=== PATIENT | male | born 1945 | race Caucasian/White ===

== ENCOUNTER 2021-10-19 13:29 | Observation (INO) | payer MEDICARE ==
[~2021-10-19] VITALS: Ht 182.9 cm; Wt 85.9 kg
--- NOTE | 2021-10-19 13:41 | PHYS DOC ---
General Adult EDM: Chief Complaint: SHORTNESS OF BREATH HPI: HPI: Patient is a 76 year old male who presents from home via EMS for multiple complaints. Reports that he has progressive shortness of breath, coughing, congestion and wheezing for the past several days. He is coughing up sputum, which is new for him. He denies any hemoptysis. He denies fevers or chills. He reports progressively worsening weakness symptoms for the past several months. He reports that he has a "neuro problem." Causes him to have shaking, ambulatory instability, and he also reports that he has an essential tremor. He has had multiple falls. He is unsure if he has hit his head, but he denies loss of consciousness. He denies chest pain. He denies abdominal pain, nausea, vomiting. He has chronic lower extremity swelling, unchanged from baseline. He is unable to articulate the names of all his medications but he reports that he has multiple medications for his heart, as well as for heart failure, and for "mental health stuff." He normally goes to the [place] for his care, but he has been unable to make an appointment to be seen for these problems recently. He denies hospitalizations within the last 90 days. He denies recent travel history. He has been fully vaccinated against COVID-19. He is a former smoker. EMS noted that he was hypoxic on room air, saturating in the 80s, he was placed on supplemental nasal cannula oxygen. He does not usually require supplemental oxygen. Review of Systems: Review of Systems: As per HPI. Physical Exam: PE: Constitutional: Frail, chronically ill-appearing male, mildly to moderately acutely ill, nontoxic HENT: Normocephalic, atraumatic, evidence of facial or oral trauma. External ea rs are normal bilaterally. Nares are patent and clear. Eyes: PERRL, EOMI, conjunctiva normal, no discharge. No nystagmus. No scleral icterus. Neck: Normal range of motion, no tenderness, supple, no stridor. [employer] is midline. No meningismus. Cardiovascular: Irregularly irregular, heart rate in the 90s and low 100s, a trial fibrillation, +2 radial and +2 posterior tibial pulses bilaterally. Lungs & Thorax: Moderate tachypnea, inspiratory and expiratory wheezing, bibasilar rales and rhonchi noted. Speaks in brief but full sentences. No retractions. No cyanosis. Abdomen: Abdomen is soft, nondistended, nontender to palpation. No palpable pulsatile mass. No CVA tenderness. No evidence of abdominal or flank ecchymoses. Skin: Warm, dry, no erythema, no rash. [] Back: No tenderness, no CVA tenderness. Kyphosis, limited range of motion. No acute deformity or midline tenderness or step-offs. Extremities: No tenderness, no cyanosis, no clubbing, ROM intact, bilateral, s ymmetric 1+ pitting lower extremity edema. No calf tenderness. Neurologic: He is awake, alert, oriented x3, cranial nerves II through XII grossly intact. Bilateral infection control coordinator strength is normal and equal bilaterally. He does manifest diffuse, symmetric bilateral lower extremity weakness, no limb ataxia, baseline tremor is noted, intention tremor is more pronounced, sensation is grossly intact, speech is fluent. Psychologic: Affect relatively flat, he is pleasant. EKG: EKG: EKG is interpreted at 1357 Rhythm is atrial fibrillation with RVR Rate is 109 bpm Caret is left No STEMI Q waves V1, V2, V3 Radiology/Procedures: Radiology/Procedures: IMAGING REPORT Signed PATIENT: ANIYAH FAYE ACCOUNT: [id number] : 1945 LOCATION: ER AGE: 76 SEX: M EXAM STATUS: REG ER ORD. PHYSICIAN: SHOSHANA JIMENES DO REASON: weakness, falls PROCEDURE: CT HEAD WO CONTRAST EXAMINATION: CT HEAD/BRAIN WO. TECHNIQUE: Noncontrast axial images of the brain were obtained with coronal and sagittal reconstructions. One or more of the following radiation dose reduction techniques was used: automated exposure control, adjustment of mA and/or KV according to patient size, and/or utilization of iterative reconstruction technique. HISTORY: 76 years Male Reason: weakness, repeated falls. FINDINGS: There is no intracranial hemorrhage, edema or mass effect. The brain parenchyma demonstrates periventricular and deep white matter hypodensities compatible with chronic microvascular ischemic changes. Size of the ventricles is slightly prominent, appears secondary to mild age- related atrophy. The visualized portions of the orbits and paranasal sinuses appear unremarkable. IMPRESSION: No acute process. Electronically signed by: Rose Kent MD (10/19/2021 2:35 PM) [id number] DICTATED AND SIGNED BY: ROSE KENT MD DATE: 10/19/21 1432 CC: SHOSHANA JIMENES DO; PCP,NO ~ IMAGING REPORT Signed PATIENT: ANIYAH FAYE ACCOUNT: [id number] : 1945 LOCATION: ER AGE: 76 SEX: M EXAM STATUS: REG ER ORD. PHYSICIAN: SHOSHANA JIMENES DO REASON: cough, dyspnea PROCEDURE: PORTABLE CHEST 1V EXAMINATION: XR CHEST 1V CLINICAL HISTORY: Cough, dyspnea. EXAM DATE/TIME: 10/19/2021 2:26 PM COMPARISON: None FINDINGS: Lines, Tubes, and Devices: None. Cardiomediastinal Silhouette: Prominent cardiac silhouette, likely accentuated by AP portable technique. Aortic atherosclerotic calcification. Lungs and Pleura: Small right pleural effusion with overlying airspace disease. Patchy opacities in the bilateral upper lung zones, right mid to lower lung zone, and bilateral lung bases. Nonspecific diffuse interstitial prominence. Biapical scarring. Bones and Soft Tissues: No acute osseous abnormality. Median sternotomy wires. IMPRESSION: Small right pleural effusion, bilateral multifocal patchy airspace disease, and nonspecific interstitial prominence. Findings may be related to infectious etiology and/or volume overload. Electronically signed by: Jules Koo DO (10/19/2021 2:44 PM) [id number] DICTATED AND SIGNED BY: JULES KOO DO DATE: 10/19/21 1442 CC: SHOSHANA JIMENES DO; PCP,NO ~ Heart Score: C/O Chest Pain: No Risk Factors: Risk Factors: DM, Current or recent (<one month) smoker, HTN, HLP, family history of CAD, obesity. Risk Scores: Score 0 - 3: 2.5% MACE over next 6 weeks - Discharge Home Score 4 - 6: 20.3% MACE over next 6 weeks - Admit for Clinical Observation Score 7 - 10: 72.7% MACE over next 6 weeks - Early Invasive Strategies Course & Med Decision Making: Course & Med Decision Making Pertinent Labs and Imaging studies reviewed. (See chart for details) Patient still requires supplemental oxygen, and he is placed on 3 L per nasal cannula. He is saturating in the high 90s. DuoNeb and IV Solu-Medrol given. Blood cultures ordered. He is empirically treated for [employer] pneumonia with IV Rocephin and p.o. azithromycin. IV Lasix is given. I have discussed the findings, differential diagnosis and plan of care with the patient. I recommended hospitalization for acute hypoxic respiratory failure, pneumonia and congestive heart failure. He initially is dissatisfied with this, but he acknowledges that he cannot go home. He lives alone. He does not have anyone to help him at home at this time. He does not have home oxygen. He likely will be able to qualify for home oxygen and be able to be discharged hopefully quickly. The patient insists that he will not stay longer than the night. I wa s able to convince him to be admitted for now. He is accepted for admission by Dr. Fletcher. Deena Disclaimer: Deena Disclaimer: This electronic medical record was generated, in whole or in part, using a voice recognition dictation system. Departure Departure: Impression: Primary Impression: Respiratory failure with hypoxia Qualified Codes: J96.01 - Acute respiratory failure with hypoxia Additional Impressions: Congestive heart failure Qualified Codes: I50.9 - Heart failure, unspecified COPD exacerbation Community acquired pneumonia Qualified Codes: J18.9 - Pneumonia, unspecified organism Chronic atrial fibrillation Disposition: ADMITTED INPATIENT Admitting Physician: Perez Fletcher Condition: GUARDED JALILSHOSHANA OLVERA DO Oct 19, 2021 13:41
[2021-10-19] MEDS ORDERED: IPRATRPIUM/ALBUTEROL 0.5/2.5MG 3 ML NEBU. NEB ONE (13:45)
[2021-10-19] MEDS ORDERED: methylPREDNISolone SOD SUCC PF 125 MG/2 ML VIAL. IV ONE (14:00)
--- NOTE | 2021-10-19 14:09 | EKG ---
[address] [address] Test Date: 2021-10-19 Test Time: 13:56:38 Pat Name: ANIYAH FAYE Department: Room: Gender: M Heel Gummer: REX : 1945 Requested By: SHOSHANA JIMENES Order Number: [id number] Reading MD: Phil Holder Measurements Intervals [place] Rate: 109 P: [place]: QRS: -22 QRSD: 136 T: -36 QT: 366 QTc: 495 Interpretive Statements ATRIAL FIBRILLATION LEFTWARD AXIS NON SPECIFIC INTRAVENTRICULAR BLOCK QRS(T) CONTOUR ABNORMALITY CONSISTENT WITH ANTEROSEPTAL INFARCT PROBABLY OLD Electronically Signed On 10-30-2021 9:47:11 CDT by Phil Holder
[2021-10-19 14:28] LABS: BASO # 0.1 x10^3/uL (0.0-0.2); BASO % 1 % (0-3); EOS # 0.1 x10^3/uL (0.0-0.7); EOS % 1 % (0-3); HEMATOCRIT 36.9 % (39.0-53.0); HEMOGLOBIN 12.1 g/dL (13.0-17.5); LYMPH # 0.6 x10^3/uL (1.0-4.8); LYMPH % 5 % (24-48); MEAN CORPUSCULAR HEMOGLOBIN 33 pg (25-35); MEAN CORPUSCULAR HGB CONC 33 g/dL (31-37); MEAN CORPUSCULAR VOLUME 99 fL (79-100); MONO % 8 % (0-9); NEUT # 9.7 x10^3uL (1.8-7.7); NEUT % 85 % (31-73); PLATELET COUNT 257 x10^3/uL (140-400); RED BLOOD COUNT 3.72 x10^6/uL (4.30-5.70); RED CELL DISTRIBUTION WIDTH 13.4 % (11.5-14.5); WHITE BLOOD COUNT 11.4 x10^3/uL (4.0-11.0)
[2021-10-19 14:37] LABS: CALCIUM 8.8 mg/dL (8.5-10.1); CREATININE 0.9 mg/dL (0.7-1.3); GFR 81.6; POTASSIUM 4.1 mmol/L (3.5-5.1)
--- NOTE | 2021-10-19 14:37 | RAD ---
EXAMINATION: CT HEAD/BRAIN WO. TECHNIQUE: Noncontrast axial images of the brain were obtained with coronal and sagittal reconstructi ons. One or more of the following radiation dose reduction techniques was used: automated exposure control , adjustment of mA and/or KV according to patient size, and/or utilization of iterative reconstructio n technique. HISTORY: 76 years Male Reason: weakness, repeated falls. FINDINGS: There is no intracranial hemorrhage, edema or mass effect. The brain parenchyma demonstrat es periventricular and deep white matter hypodensities compatible with chronic microvascular ischemic changes. Size of the ventricles is slightly prominent, appears secondary to mild age-related atrophy. The visu alized portions of the orbits and paranasal sinuses appear unremarkable. IMPRESSION: No acute process. Electronically signed by: Charly Kent MD (10/19/2021 2:35 PM) [id number]
--- NOTE | 2021-10-19 14:47 | RAD ---
EXAMINATION: XR CHEST 1V CLINICAL HISTORY: Cough, dyspnea. EXAM DATE/TIME: 10/19/2021 2:26 PM COMPARISON: None FINDINGS: Lines, Tubes, and Devices: None. Cardiomediastinal Silhouette: Prominent cardiac silhouette, likely accentuated by AP portable techniq ue. Aortic atherosclerotic calcification. Lungs and Pleura: Small right pleural effusion with overlying airspace disease. Patchy opacities in t he bilateral upper lung zones, right mid to lower lung zone, and bilateral lung bases. Nonspecific di ffuse interstitial prominence. Biapical scarring. Bones and Soft Tissues: No acute osseous abnormality. Median sternotomy wires. IMPRESSION: Small right pleural effusion, bilateral multifocal patchy airspace disease, and nonspecific interstit ial prominence. Findings may be related to infectious etiology and/or volume overload. Electronically signed by: Jules Clark DO (10/19/2021 2:44 PM) [id number]
[2021-10-19 14:50] LABS: ALBUMIN 2.9 g/dL (3.4-5.0); ALBUMIN/GLOBULIN RATIO 0.8 (1.0-1.7); MAGNESIUM 1.9 mg/dL (1.8-2.4); PHOSPHORUS 3.7 mg/dL (2.6-4.7); TOTAL BILIRUBIN 1.1 mg/dL (0.2-1.0); TOTAL PROTEIN 6.6 g/dL (6.4-8.2)
[2021-10-19 14:52] LABS: INFLUENZA A PATIENT NEGATIVE (NEGATIVE); INFLUENZA B PATIENT NEGATIVE (NEGATIVE)
[2021-10-19] MEDS ORDERED: FUROSEMIDE 40 MG/4 ML VIAL IVP ONE (15:45)
[2021-10-19] MEDS ORDERED: AZITHROMYCIN 250 MG TABLET. PO ONE (15:45)
[2021-10-19] MEDS ORDERED: IV NORMAL SALINE 100ML 100 ML ONE ×3 (15:48→15:58)
[2021-10-19 16:24] LABS: BACTERIA,URINE 0 /HPF (0-FEW); CLARITY,URINE CLEAR; COLOR,URINE YELLOW; GLUCOSE,URINE NEG (NEG); NITRITE,URINE NEG (NEG); SQUAMOUS EPITHELIAL CELL,UR FEW /LPF
[2021-10-19 16:25] LABS: HYALINE CASTS, URINE MOD /HPF
[2021-10-19] MEDS ORDERED: ONDANSETRON PF 4 MG/2 ML VIAL. IVP PRN (16:30)
[2021-10-19] MEDS: IPRATRPIUM/ALBUTEROL 0.5/2.5MG 3 ML NEBU. NEB SCH ×2 (16:35→20:32)
[2021-10-19 20:52] VITALS: BP 144/68
[2021-10-19] MEDS: methylPREDNISolone SOD SUCC PF 125 MG/2 ML VIAL. IV SCH ×2 (21:45→22:07)
[2021-10-19] MEDS ORDERED: methylPREDNISolone SOD SUCC PF 125 MG/2 ML VIAL. IV SCH (22:00)
[2021-10-19 23:35] VITALS: BP 143/70
[2021-10-20] MEDS: IPRATRPIUM/ALBUTEROL 0.5/2.5MG 3 ML NEBU. NEB SCH ×3 (05:10→15:17)
[2021-10-20] MEDS ORDERED: APIX5TAB3 PO (05:14)
[2021-10-20] MEDS: methylPREDNISolone SOD SUCC PF 125 MG/2 ML VIAL. IV SCH ×2 (06:23→15:41)
[2021-10-20 07:21] VITALS: BP 115/66
[2021-10-20 11:42] VITALS: BP 130/60
[2021-10-20 15:22] VITALS: BP 120/65
[2021-10-20] MEDS ORDERED: LACTOBACILLUS RHAMNOSUS GG 1 CAPSULE. PO SCH (21:00)
[2021-10-20] MEDS ORDERED: TRAZ-120 PO (21:43)
[2021-10-20] MEDS ORDERED: SERT100T PO (21:43)
[2021-10-20] MEDS ORDERED: NALT50TA PO (21:43)
[2021-10-20] MEDS ORDERED: ALBU2.5V8 IH (21:43)
[2021-10-20] MEDS ORDERED: FLUT1DIS3 IH (21:43)
[2021-10-20] MEDS ORDERED: TOPI50TA8 PO (21:43)
[2021-10-20] MEDS ORDERED: LAMO200T25 PO (21:43)
[2021-10-20] MEDS ORDERED: CHOL10004 PO (21:43)
[2021-10-20] MEDS ORDERED: METO200T2 PO (21:43)
[2021-10-20] MEDS ORDERED: FURO40TA4 PO (21:43)
[2021-10-25] MEDS ORDERED: FURO40TA4 PO (14:24)
[2021-10-25] MEDS ORDERED: POTA20TA4 PO (14:24)
== END 2021-10-20 15:30 | disposition left against medical advice (07) ==
LOC: ER 13:29 → 1 SOUTH 16:22
PROVIDERS: ADMIT Hospitalist; ATTEND Hospitalist
DX: J96.01 Acute respiratory failure with hypoxia (principal); Z20.822 Contact with and (suspected) exposure to COVID-19; I11.0 Hypertensive heart disease with heart failure; I50.9 Heart failure, unspecified; J18.9 Pneumonia, unspecified organism; I48.20 Chronic atrial fibrillation, unspecified; J44.1 Chronic obstructive pulmonary disease with (acute) exacerbation; J44.0 Chronic obstructive pulmonary disease with (acute) lower respiratory infection; G25.0 Essential tremor; Z87.891 Personal history of nicotine dependence; Z79.899 Other long term (current) drug therapy; Z98.890 Other specified postprocedural states
CPT/HCPCS: 94640; 96365; 96366; 96375; 96376; 99285; G0378; J0696; J1940; J2930; 36415; 70450; 71045; 80053; 81001; 82550; 82803; 83605; 83735; 83880; 84100; 84484; 85025; 85610; 85730; 87040; 87428; 93005; G0379; U0003; 97530

== ENCOUNTER 2021-10-20 19:14 | Inpatient (IN) | payer MEDICARE ==
[~2021-10-20] VITALS: Ht 182.9 cm; Wt 85.2 kg
[~2021-10-20 19:14] MED LIST: APIX5TAB3 PO
--- NOTE | 2021-10-20 20:27 | PHYS DOC ---
Past History Additional Past Medical Histor: ESSENTIAL TREMOR; TBI AT AGE 3YRS (ROSEMARY LEE APRN) Past Surgical History: Coronary Bypass Surgery, Other Additional Past Surgical Histo: AORTIC VALVE REPLACEMENT, COLLAPSE LUNG REPAIR (ROSEMARY LEE APRN) Alcohol Use: Sober (ROSEMARY LEE APRN) General Adult EDM: Chief Complaint: SHORTNESS OF BREATH HPI: HPI: Patient is a 76-year-old male who presents to the emergency department for shortness of breath. Patient was seen in this emergency department yesterday afternoon and diagnosed with hypoxia as well as bilateral multifocal pneumonia. At that time patient required 3 L via nasal cannula he was also noted to have a white count of 11.4 and a BNP of 2943. Patient was given Lasix, Rocephin and azithromycin and admitted to the hospital. Patient reports that he was tired of waiting alone so he wanted to leave AGAINST MEDICAL ADVICE and signed out from the hospital 4 hours prior to arriving in the emergency department for shortness of breath. Patient denies nausea, vomiting, chest pain, fevers. Patient reports that he would like to be admitted to the hospital again. (ROSEMARY LEE APRN) Review of Systems: Review of Systems: Constitutional: See HPI Respiratory: See HPI Cardiovascular: See HPI GI: See HPI (ROSEMARY LEE APRN) Allergies: Allergies: Allergies Coded Allergies Type Severity Reaction Last Updated Verified acetaminophen Allergy Unknown Swelling 10/19/21 Yes (ROSEMARY LEE APRN) Physical Exam: PE: Constitutional: Well developed, well nourished, no acute distress, non-toxic appearance. [] HENT: Normocephalic, atraumatic, bilateral external ears normal, oropharynx moist, no oral exudates, nose normal. [] Eyes: PERRL, EOMI, conjunctiva normal, no discharge. [] Neck: Normal range of motion, no stridor Cardiovascular:Heart rate regular rhythm, no murmur [] Lungs & Thorax: rhonchi/coarse in lower lobes Abdomen: Bowel sounds normal, soft, no tenderness, no masses, no pulsatile masses. [] Skin: Warm, dry, no erythema, no rash. [] Back: No tenderness, normal ROM Extremities: No tenderness, no cyanosis, no clubbing, ROM intact, no edema. [] Neurologic: Alert and oriented X 3, normal motor function, normal sensory function, no focal deficits noted. [] Psychologic: Affect normal, judgement normal, mood normal. [] (ROSEMARY LEE APRN) Current Patient Data: Labs: Laboratory Tests Test 10/20/21 20:34 White Blood Count 19.1 x10^3/uL Red Blood Count 3.69 x10^6/uL Hemoglobin 11.9 g/dL Hematocrit 36.4 % Mean Corpuscular Volume 99 fL Mean Corpuscular Hemoglobin 32 pg Mean Corpuscular Hemoglobin Concent 33 g/dL Red Cell Distribution Width 13.7 % Platelet Count 272 x10^3/uL Neutrophils (%) (Auto) 84 % Lymphocytes (%) (Auto) 7 % Monocytes (%) (Auto) 8 % Eosinophils (%) (Auto) 0 % Basophils (%) (Auto) 1 % Neutrophils # (Auto) 16.2 x10^3uL Lymphocytes # (Auto) 1.3 x10^3/uL Monocytes # (Auto) 1.5 x10^3/uL Eosinophils # (Auto) 0.0 x10^3/uL Basophils # (Auto) 0.1 x10^3/uL Segmented Neutrophils % 86 % Band Neutrophils % 4 % Lymphocytes % 6 % Monocytes % 4 % Platelet Estimate Adequate Sodium Level 136 mmol/L Potassium Level 4.0 mmol/L Chloride Level 99 mmol/L Carbon Dioxide Level 30 mmol/L Anion Gap 7 Blood Urea Nitrogen 18 mg/dL Creatinine 0.9 mg/dL Estimated GFR (Cockcroft-Gault) 81.6 BUN/Creatinine Ratio 20 Glucose Level 96 mg/dL Calcium Level 9.1 mg/dL Total Bilirubin 0.6 mg/dL Aspartate Amino Transf (AST/SGOT) 23 U/L Alanine Aminotransferase (ALT/SGPT) 18 U/L Alkaline Phosphatase 157 U/L Troponin I High Sensitivity 16 ng/L IF-Ggo-X-Type Natriuretic Peptide 3004 pg/mL Total Protein 6.5 g/dL Albumin 2.8 g/dL Albumin/Globulin Ratio 0.8 Current Medications Medications (Trade) Dose Ordered Sig/Sommer Route PRN Reason Start Time Stop Time Status Last Admin Dose Admin Ceftriaxone Sodium 1 gm/ Sodium Chloride 50 ml @ 100 mls/hr 1X ONCE IV 10/20/21 20:30 10/20/21 20:59 DC 10/20/21 20:30 Sodium Chloride 50 ml @ As Directed STK-MED ONCE .ROUTE 10/20/21 20:40 10/20/21 20:40 DC Ceftriaxone Sodium (Rocephin) 1 gm STK-MED ONCE .ROUTE 10/20/21 20:40 10/20/21 20:40 DC Vital Signs: Vital Signs Date Time Temp Pulse Resp B/P (MAP) Pulse Ox O2 Delivery O2 Flow Rate FiO2 10/20/21 19:51 98.4 93 16 130/47 (74) 93 Room Air (ROSEMARY LEE APRN) EKG: EKG: EKG performed by ER staff shows A. fib with a rate of [address] Leal, no stemi[] (ROSEMARY LEE APRN) Radiology/Procedures: Radiology/Procedures: [] (ROSEMARY LEE APRN) Heart Score: C/O Chest Pain: No Risk Factors: Risk Factors: DM, Current or recent (<one month) smoker, HTN, HLP, family history of CAD, obesity. Risk Scores: Score 0 - 3: 2.5% MACE over next 6 weeks - Discharge Home Score 4 - 6: 20.3% MACE over next 6 weeks - Admit for Clinical Observation Score 7 - 10: 72.7% MACE over next 6 weeks - Early Invasive Strategies (ROSEMARY LEE APRN) Course & Med Decision Making: Course & Med Decision Making Patient presents to the emergency department for shortness of breath after leaving AGAINST MEDICAL ADVICE for bilateral pneumonia 4 hours prior to arrival. I repeated blood work including troponin and BNP. I discussed these findings with Dr. Chavira who agreed to admit the patient again for bilateral pneumonia with IV antibiotics, these were started in the ER. Patient's oxygen saturation is 92% on room air. With ambulation he is 89% on room air. He does not have oxygen at home. Work-up in the ER consisted of blood work, EKG and he will be restarted on his antibiotics. Patient was noted to have leukocytosis with a white blood cell count of 19 and his BNP was 3000. ER bridge orders placed. pertinent Labs and Imaging studies reviewed. (See chart for details) [] (ROSEMARY LEE APRN) Course & Med Decision Making Did not see or evaluate patient. Did not discuss patient with MACHINE PACKER. Generally agree with MACHINE PACKER's work-up and disposition per note. (THAI LEAL MD) Dragon Disclaimer: Dragon Disclaimer: This electronic medical record was generated, in whole or in part, using a voice recognition dictation system. (ROSEMARY LEE APRN) Departure Departure: Impression: Primary Impression: Community acquired pneumonia Qualified Codes: J18.9 - Pneumonia, unspecified organism Additional Impression: Hypoxia Disposition: ADMITTED INPATIENT Admitting Physician: Juan Francisco Chavira (ROSEMARY LEE APRN) Condition: STABLE Referrals: PCP,NO (PCP) ROSEMARY LEE APRN Oct 20, 2021 20:27 THAI LEAL MD Oct 20, 2021 22:35
[2021-10-20] MEDS ORDERED: IV NORMAL SALINE 50ML 50 ML ONE (20:40)
[2021-10-20] MEDS ORDERED: cefTRIAXone SODIUM 1 GM VIAL ONE (20:40)
[2021-10-20 20:47] LABS: BASO # 0.1 x10^3/uL (0.0-0.2); BASO % 1 % (0-3); EOS % 0 % (0-3); HEMATOCRIT 36.4 % (39.0-53.0); HEMOGLOBIN 11.9 g/dL (13.0-17.5); LYMPH # 1.3 x10^3/uL (1.0-4.8); LYMPH % 7 % (24-48); MEAN CORPUSCULAR HEMOGLOBIN 32 pg (25-35); MEAN CORPUSCULAR HGB CONC 33 g/dL (31-37); MEAN CORPUSCULAR VOLUME 99 fL (79-100); MONO # 1.5 x10^3/uL (0.0-1.1); MONO % 8 % (0-9); NEUT # 16.2 x10^3uL (1.8-7.7); NEUT % 84 % (31-73); PLATELET COUNT 272 x10^3/uL (140-400); RED BLOOD COUNT 3.69 x10^6/uL (4.30-5.70); RED CELL DISTRIBUTION WIDTH 13.7 % (11.5-14.5); WHITE BLOOD COUNT 19.1 x10^3/uL (4.0-11.0)
[2021-10-20 21:07] LABS: CALCIUM 9.1 mg/dL (8.5-10.1); CREATININE 0.9 mg/dL (0.7-1.3); GFR 81.6
[2021-10-20 21:13] LABS: % BANDS 4 % (0-9); % LYMPHS 6 % (24-48); % MONOS 4 % (0-10); % SEGS 86 % (35-66)
[2021-10-20 21:14] LABS: PLT ESTIMATE ADEQUATE (ADEQUATE)
[2021-10-20 21:20] LABS: ALBUMIN 2.8 g/dL (3.4-5.0); ALBUMIN/GLOBULIN RATIO 0.8 (1.0-1.7); TOTAL BILIRUBIN 0.6 mg/dL (0.2-1.0); TOTAL PROTEIN 6.5 g/dL (6.4-8.2)
[2021-10-20] MEDS ORDERED: SERT100T PO (21:43)
[2021-10-20] MEDS ORDERED: TOPI50TA8 PO (21:43)
[2021-10-20] MEDS ORDERED: TRAZ-120 PO (21:43)
[2021-10-20] MEDS ORDERED: CHOL10004 PO (21:43)
[2021-10-20] MEDS ORDERED: LAMO200T25 PO (21:43)
[2021-10-20] MEDS ORDERED: FLUT1DIS3 IH (21:43)
[2021-10-20] MEDS ORDERED: ALBU2.5V8 IH (21:43)
[2021-10-20] MEDS ORDERED: METO200T2 PO (21:43)
[2021-10-20] MEDS ORDERED: NALT50TA PO (21:43)
[2021-10-20] MEDS ORDERED: FURO40TA4 PO (21:43)
[2021-10-20] MEDS ORDERED: AZITHROMYCIN 500 MG in IV NORMAL SALINE 250ML 250 ML IV ONE (22:00)
[2021-10-20] MEDS ORDERED: ALBUTEROL SULFATE 2.5 MG/3 ML NEBU. IH PRN (23:15)
[2021-10-20] MEDS ORDERED: ANTI-COAG MONITOR BY PHARMACY. MC PRN (23:15)
[2021-10-20 23:39] VITALS: BP 135/51
[2021-10-20] MEDS: traZODone 50 MG TABLET. PO PRN (23:43)
[2021-10-20] MEDS: SERTRALINE 100 MG TABLET. PO SCH (23:43)
[2021-10-20] MEDS: TOPIRAMATE 25 MG TABLET. PO SCH (23:44)
[2021-10-20] MEDS: APIXABAN 5 MG TABLET. PO SCH (23:44)
[2021-10-20] MEDS: lamoTRIgine 100 MG TABLET. PO SCH (23:44)
--- NOTE | 2021-10-20 23:56 | EKG ---
[address] [address] Test Date: 2021-10-20 Test Time: 21:46:14 Pat Name: ANIYAH FAYE Department: Room: 122 A Gender: M Specifications Checker: : 1945 Requested By: ROSEMARY LEE Order Number: [id number] Reading MD: Phil Holder Measurements Intervals [place] Rate: 100 P: [place]: QRS: -30 QRSD: 128 T: -72 QT: 380 QTc: 494 Interpretive Statements ATRIAL FIBRILLATION ABNORMAL LEFT AXIS DEVIATION NON SPECIFIC INTRAVENTRICULAR BLOCK QRS(T) CONTOUR ABNORMALITY CONSISTENT WITH ANTEROSEPTAL INFARCT PROBABLY OLD ABNORMAL ECG Electronically Signed On 10-30-2021 8:58:54 CDT by Phil Holder
[2021-10-21 05:38] VITALS: BP 158/67
[2021-10-21] MEDS: BUDESONIDE 0.5 MG/2 ML NEBU NEB SCH ×3 (08:00→23:08)
[2021-10-21] MEDS: ALBUTEROL SULFATE 2.5 MG/3 ML NEBU. NEB SCH ×4 (08:00→20:37)
[2021-10-21] MEDS: AZITHROMYCIN 250 MG TABLET. PO SCH (08:38)
[2021-10-21] MEDS: CHOLECALCIFEROL (VITAMIN D3) 1,000 UNIT TABLET PO SCH (08:39)
[2021-10-21] MEDS: TOPIRAMATE 25 MG TABLET. PO SCH ×2 (08:40→20:34)
[2021-10-21] MEDS: APIXABAN 5 MG TABLET. PO SCH ×2 (08:40→20:34)
[2021-10-21] MEDS: lamoTRIgine 100 MG TABLET. PO SCH ×2 (08:40→20:34)
[2021-10-21] MEDS: LACTOBACILLUS RHAMNOSUS GG 1 CAPSULE. PO SCH ×2 (08:40→20:33)
[2021-10-21] MEDS: METOPROLOL SUCC 24HR ER 50 MG TAB.ER.24H. PO SCH (08:40)
[2021-10-21] MEDS: NALTREXONE HCL 50 MG TABLET PO SCH (08:41)
[2021-10-21] MEDS ORDERED: FUROSEMIDE 40 MG TABLET PO SCH (09:00)
[2021-10-21] MEDS ORDERED: DIGOXIN IV 500 MCG/2 ML AMPUL. IV ONE ×2 (11:00→16:15)
[2021-10-21 11:16] VITALS: BP 112/65
[2021-10-21 15:00] VITALS: BP 149/67
--- NOTE | 2021-10-21 16:06 | HP ---
DATE OF SERVICE: 10/21/2021 ADMIT DATE: 10/20/2021 HISTORY OF PRESENT ILLNESS: The patient is a 76-year-old male patient who presented to the Emergency Department for shortness of breath. He was seen in the Emergency Department the day before, diagnosed with hypoxia as well as bilateral multifocal pneumonia. At that time, the patient required 3 liters by nasal cannula. He was also noted to have a white count of 11.4. BNP of 2943. The patient was given Lasix, Rocephin and Zithromax and admitted to the hospital and unfortunately before I was able to see him, he left against medical advice and signed out from the hospital only to come back in 4 hours with again complaints of shortness of breath. He denied any nausea or vomiting. Denied any chest pain, fever. He reports that he would like to be admitted to the hospital again. He was extensively investigated and was found to have marked leukocytosis with a white cell count 19.1. Likely due to some of it or at least in part due to steroids. His chemistry was mostly unremarkable except that beta natriuretic peptide was high at 3000 and his first troponin was 16. His chest x-ray done on the day before showed cardiomegaly and also bilateral pleural effusion, bilateral multifocal patchy airspace disease, nonspecific interstitial prominence. Finding may be related to infectious etiology and/or volume overload. CT scan of the head showed there is no intracranial hemorrhage, edema or mass effect, the brain parenchyma demonstrates periventricular and deep white matter hypodensities compatible with chronic microvascular ischemic change. Size of the ventricles slightly prominent appear secondary to mild age-related atrophy. The visualized portion of the orbits, paranasal sinuses appears unremarkable. The patient was admitted with a community-acquired pneumonia, acute hypoxic respiratory failure and also probably acute on chronic, possibly systolic congestive heart failure. He was treated with IV antibiotic including azithromycin as well as ceftriaxone and also IV Lasix and digoxin and was admitted for further evaluation and treatment. PAST MEDICAL HISTORY: Significant for bronchial asthma/also chronic obstructive pulmonary disease, likely congestive heart failure; has aortic valve disease, status post aortic valve replacement; coronary artery disease status post CABG as well as stent deployment in 2002. He is also on apixaban, likely for atrial fibrillation. PAST SURGICAL HISTORY: Significant for aortic valve replacement with bioprosthetic valve. He has also coronary artery bypass graft surgery as well as PCI with stent deployment. He has right ankle fracture, status post open reduction internal fixation, bilateral rotator cuff repair and has had also a chest tube placement and thoracotomy for pneumothorax and possible empyema. ALLERGIES: HE IS ALLERGIC TO TYLENOL. MEDICATIONS: He is currently on the following medications: He is on albuterol sulfate 2 puffs 4 times a day, apixaban 5 mg twice a day, metoprolol succinate, he takes 100 mg once a day. He is on naltrexone 50 mg daily, lamotrigine 200 mg twice a day, topiramate 50 mg twice a day, sertraline or Zoloft 100 mg once a day, trazodone 50 mg at bedtime as needed. He is on furosemide 40 mg daily. He is on also Advair Diskus 250/50 one puff twice a day and cholecalciferol, vitamin D3 4000 units daily. FAMILY HISTORY: His father at age of 68 with lung cancer. Mother at age of 85 because of chronic obstructive pulmonary disease/emphysema. SOCIAL HISTORY: He is , has 2 sons, one has neuromuscular disease. He is an ex-smoker, quit in 2002. He, however, continued to chew [place]. He finishes one can in every 4 days. He quit alcohol about 8 years ago. Does not use any drugs. 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 REVIEW OF SYSTEMS: As per history of present illness. PHYSICAL EXAMINATION: GENERAL: On arrival to the Emergency Room, the patient was clearly somewhat tachypneic, pale, but not jaundiced or cyanosed, no lymphadenopathy, no thyromegaly, no jugular venous distention. Mild bilateral lower extremity edema. VITAL SIGNS: His heart rate was 93, blood pressure was 130/47, temperature was 98.4, respiratory rate was 16 and oxygen saturation was 93% on room air. HEAD, EYES, EARS, NOSE, AND THROAT: Normocephalic, atraumatic. NECK: Supple. HEART: Showed normal first and second heart sounds. No gallop or murmur. CHEST: Shows central trachea, equal bilateral chest expansion, air entry, vesicular breath sounds with bilateral basal crepitation and very few scattered rhonchi. ABDOMEN: Distended, soft, nontender. NEUROLOGIC: He was awake, alert, responding appropriately. All his cranial nerves are intact. He moves extremities without difficulty, ambulates with a cane. LABORATORY WORK: On arrival showed a white cell count of 19,000, hemoglobin 11.9, hematocrit 36, MCV 99 and platelet count of 272,000 with a manual differential showed 84% polymorphs, 7% lymphocytes and 8% monocytes. His chemistry showed a serum sodium 136, potassium 4, chloride 99, bicarbonate 30, anion gap of 7, BUN 18, creatinine 0.9. Estimated GFR was 81 mL per minute. His glucose was 96, calcium was 9.1. Total bilirubin, AST, ALT were normal. Alkaline phosphatase was 157. His troponin I high sensitivity was only 16. Beta natriuretic peptide was 3000. Total protein 6.5, albumin was 2.8. ASSESSMENT AND PLAN: 1. In summary, this is a 76-year-old male patient who was admitted with worsening shortness of breath, cough with yellowish sputum, likely due to community-acquired pneumonia. 2. Acute chronic obstructive pulmonary disease exacerbation. 3. Acute probably systolic congestive heart failure. The patient has also probably ischemic cardiomyopathy and acute on chronic systolic congestive heart failure, hypertension. He has also what seems to be depression and migraine headache. The plan is to obviously continue with IV antibiotic. Continue in the form of Zithromax and ceftriaxone. Continue with diuretics. I will consult the microsoft dynamics manager architect to assist with his management. Meanwhile, we will continue with also the bronchodilators. ARLINE/ASHLEY/BETHANY DR: Annie TID: [id number]
[2021-10-21 19:33] VITALS: BP 151/64
[2021-10-21] MEDS: SERTRALINE 100 MG TABLET. PO SCH (20:34)
[2021-10-21] MEDS: traZODone 50 MG TABLET. PO PRN (20:35)
[2021-10-21 23:24] VITALS: BP 139/63
[2021-10-22] MEDS: ALBUTEROL SULFATE 2.5 MG/3 ML NEBU. NEB SCH ×4 (05:08→21:07)
[2021-10-22 06:04] VITALS: BP 159/66
[2021-10-22 06:15] LABS: BASO # 0.1 x10^3/uL (0.0-0.2); BASO % 1 % (0-3); EOS # 0.3 x10^3/uL (0.0-0.7); EOS % 3 % (0-3); HEMATOCRIT 35.2 % (39.0-53.0); HEMOGLOBIN 11.7 g/dL (13.0-17.5); LYMPH # 1.1 x10^3/uL (1.0-4.8); LYMPH % 13 % (24-48); MEAN CORPUSCULAR HEMOGLOBIN 33 pg (25-35); MEAN CORPUSCULAR HGB CONC 33 g/dL (31-37); MEAN CORPUSCULAR VOLUME 100 fL (79-100); MONO % 11 % (0-9); NEUT # 6.2 x10^3uL (1.8-7.7); NEUT % 72 % (31-73); PLATELET COUNT 251 x10^3/uL (140-400); RED BLOOD COUNT 3.52 x10^6/uL (4.30-5.70); RED CELL DISTRIBUTION WIDTH 13.8 % (11.5-14.5); WHITE BLOOD COUNT 8.6 x10^3/uL (4.0-11.0)
[2021-10-22 06:39] LABS: ALBUMIN 2.6 g/dL (3.4-5.0); ALBUMIN/GLOBULIN RATIO 0.8 (1.0-1.7); CALCIUM 8.6 mg/dL (8.5-10.1); CREATININE 0.9 mg/dL (0.7-1.3); GFR 81.6; POTASSIUM 4.1 mmol/L (3.5-5.1); TOTAL BILIRUBIN 0.6 mg/dL (0.2-1.0)
--- NOTE | 2021-10-22 08:09 | PDOC2 ---
ENRICO STOUT PORCELAIN TURNER 10/22/21 0809: CARDIAC CONSULT DATE OF CONSULT DOS: DATE: 10/22/21 TIME: 08:05 REASON FOR CONSULT Reason for Consult CHF, ICM REFERRING PHYSICIAN Referring Physician Dr. Bettencourt SOURCE Source: Chart review, Patient HPI History of Present Illness This is a 76 yo male who presented secondary to shortness of breath. Patient reports he has been short of breath for the last several weeks. Has progressively worsened and was occurring at rest. No LE edema or chest pain. He presented to [facility] ED on 10/19/21. Was given IV Lasix and antibiotic therapy. Unfortunately, patient left AMA prior to being admitted to the hospital due to the wait time. Patient reports back to the hospital the following day due to persistent shortness of breath. He continue to deny as chest pain, dizziness, diaphoresis, or nausea/vomiting. PAST MEDICAL HISTORY Cardiovascular: AFIB, CAD, CHF, HTN, aortic stenosis Pulmonary: Asthma, COPD Heme/Onc: Anemia NOS Psych: Anxiety, Depression Musculoskeletal: Osteoarthritis PAST SURGICAL HISTORY Past Surgical History: CABG, Other (bioprosthetic AVR) FAMILY HISTORY Family History: Heart Disease SOCIAL HISTORY Smoke: Quit ALCOHOL: other (h/o heavy use ) Drugs: None Lives: Alone CURRENT MEDICATIONS Current Medications Current Medications Ceftriaxone Sodium 1 gm/ Sodium Chloride 50 ml @ 100 mls/hr 1X ONCE IV Last administered on 10/20/21at 20:30; Start 10/20/21 at 20:30; Stop 10/20/21 at 20:59; Status DC Sodium Chloride 50 ml @ As Directed STK-MED ONCE .ROUTE ; Start 10/20/21 at 20:40; Stop 10/20/21 at 20:40; Status DC Ceftriaxone Sodium (Rocephin) 1 gm STK-MED ONCE .ROUTE ; Start 10/20/21 at 20:40; Stop 10/20/21 at 20:40; Status DC Azithromycin 500 mg/Sodium Chloride 250 ml @ 250 mls/hr 1X ONCE IV Last administered on 10/20/21at 22:56; Start 10/20/21 at 22:00; Stop 10/20/21 at 22:59; Status DC Albuterol Sulfate (Ventolin) 2.5 mg PRN QID PRN IH FOR ASTHMA; Start 10/20/21 at 23:15 Apixaban (Eliquis) 5 mg BID PO Last administered on 10/21/21 20:34; Start 10/20/21 at 23:30 Vitamin D (Vitamin D3) 4,000 unit DAILY PO Last administered on 10/21/21 08:39; Start 10/21/21 at 09:00 Furosemide (Lasix) 40 mg DAILY PO Last administered on 10/21/21 08:40; Start 10/21/21 at 09:00 Naltrexone HCl (ReVia) 50 mg DAILY PO Last administered on 10/21/21 08:41; Start 10/21/21 at 09:00 Sertraline HCl (Zoloft) 200 mg HS PO Last administered on 10/21/21 20:34; Start 10/20/21 at 23:30 Trazodone HCl (Desyrel) 50 mg PRN QHS PRN PO SLEEP Last administered on 10/21/21 20:35; Start 10/20/21 at 23:15 Budesonide (Pulmicort) 0.5 mg RTBID NEB Last administered on 10/21/21 23:08; Start 10/21/21 at 08:00 Lamotrigine (LaMICtal) 200 mg BID PO Last administered on 10/21/21 20:34; Start 10/20/21 at 23:30 Metoprolol Succinate (Toprol Xl) 100 mg DAILY PO Last administered on 10/21/21 08:40; Start 10/21/21 at 09:00 Topiramate (Topamax) 50 mg BID PO Last administered on 10/21/21 20:34; Start 10/20/21 at 23:30 Info (Anti-Coagulation Monitoring By Pharmacy) 1 each PRN DAILY PRN MC PER PROTOCOL; Start 10/20/21 at 23:15 Albuterol Sulfate (Ventolin) 2.5 mg RTQID NEB Last administered on 10/22/21 05:08; Start 10/21/21 at 08:00 Ceftriaxone Sodium 1 gm/ Sodium Chloride 50 ml @ 100 mls/hr Q24H IV Last administered on 10/21/21 20:33; Start 10/21/21 at 20:00 Azithromycin (Zithromax) 250 mg DAILY PO Last administered on 10/21/21 08:38; Start 10/21/21 at 09:00 Lactobacillus Rhamnosus (Culturelle) 1 cap BID PO Last administered on 10/21/21at 20:33; Start 10/21/21 at 09:00 Digoxin (Lanoxin) 500 mcg 1X ONCE IV Last administered on 10/21/21at 11:10; Start 10/21/21 at 11:00; Stop 10/21/21 at 11:04; Status DC Digoxin (Lanoxin) 250 mcg 1X ONCE IV Last administered on 10/21/21at 16:20; Start 10/21/21 at 16:15; Stop 10/21/21 at 16:16; Status DC Digoxin (Lanoxin) 250 mcg DAILY PO ; Start 10/22/21 at 09:00 Active Scripts Active Reported Toprol Xl (Metoprolol Succinate) 200 Mg Tab.er.24h 0.5 Tab PO DAILY Furosemide 40 Mg Tablet 40 Mg PO DAILY Trazodone Hcl 50 Mg Tablet 50 Mg PO PRN QHS PRN Topiramate 50 Mg Tablet 50 Mg PO BID Zoloft (Sertraline Hcl) 100 Mg Tablet 100 Mg PO HS Naltrexone Hcl 50 Mg Tablet 50 Mg PO DAILY Lamotrigine 200 Mg Tab.er.24 200 Mg PO BID Advair 250-50 Diskus (Fluticasone/Salmeterol) 1 Each Disk.w.dev 1 Puff IH BID Vitamin D3 (Vitamin D) 25 Mcg Tablet 4,000 Units PO DAILY 1,000 UNITS = 25 MCG Ventolin Hfa Inhaler (Albuterol Sulfate) 18 Gm Hfa.aer.ad 2 Puff IH PRN QID PRN Eliquis (Apixaban) 5 Mg Tablet 5 Mg PO BID ALLERGIES Allergies: Coded Allergies: acetaminophen (Verified Allergy, Unknown, Swelling, 10/19/21) ROS Review of Systems 14 point ROS conducted with pertinent positives noted above in HPI PHYSICAL EXAM General: Alert, Oriented X3, Cooperative, No acute distress HEENT: Atraumatic Lungs: Other (diminished bases ) Heart: Other (AFIB, rate controlled ) Abdomen: Soft Extremities: No edema, Normal pulses Skin: No breakdown Neuro: Normal speech, Sensation intact Psych/Mental Status: Mental status NL, Mood NL MUSCULOSKELETAL: Osteoarthritic changes both hands VITALS Vital Signs Vital Signs Date Time Temp Pulse Resp B/P (MAP) Pulse Ox O2 Delivery O2 Flow Rate FiO2 10/22/21 06:04 97.2 81 20 159/66 (97) 93 Nasal Cannula 2.0 LABS LABS Laboratory Tests Test 10/20/21 20:34 10/22/21 05:46 White Blood Count 19.1 x10^3/uL (4.0-11.0) 8.6 x10^3/uL (4.0-11.0) Red Blood Count 3.69 x10^6/uL (4.30-5.70) 3.52 x10^6/uL (4.30-5.70) Hemoglobin 11.9 g/dL (13.0-17.5) 11.7 g/dL (13.0-17.5) Hematocrit 36.4 % (39.0-53.0) 35.2 % (39.0-53.0) Mean Corpuscular Volume 99 fL (79-100) 100 fL (79-100) Mean Corpuscular Hemoglobin 32 pg (25-35) 33 pg (25-35) Mean Corpuscular Hemoglobin Concent 33 g/dL (31-37) 33 g/dL (31-37) Red Cell Distribution Width 13.7 % (11.5-14.5) 13.8 % (11.5-14.5) Platelet Count 272 x10^3/uL (140-400) 251 x10^3/uL (140-400) Neutrophils (%) (Auto) 84 % (31-73) 72 % (31-73) Lymphocytes (%) (Auto) 7 % (24-48) 13 % (24-48) Monocytes (%) (Auto) 8 % (0-9) 11 % (0-9) Eosinophils (%) (Auto) 0 % (0-3) 3 % (0-3) Basophils (%) (Auto) 1 % (0-3) 1 % (0-3) Neutrophils # (Auto) 16.2 x10^3uL (1.8-7.7) 6.2 x10^3uL (1.8-7.7) Lymphocytes # (Auto) 1.3 x10^3/uL (1.0-4.8) 1.1 x10^3/uL (1.0-4.8) Monocytes # (Auto) 1.5 x10^3/uL (0.0-1.1) 1.0 x10^3/uL (0.0-1.1) Eosinophils # (Auto) 0.0 x10^3/uL (0.0-0.7) 0.3 x10^3/uL (0.0-0.7) Basophils # (Auto) 0.1 x10^3/uL (0.0-0.2) 0.1 x10^3/uL (0.0-0.2) Segmented Neutrophils % 86 % (35-66) Band Neutrophils % 4 % (0-9) Lymphocytes % 6 % (24-48) Monocytes % 4 % (0-10) Platelet Estimate Adequate (ADEQUATE) Sodium Level 136 mmol/L (136-145) 141 mmol/L (136-145) Potassium Level 4.0 mmol/L (3.5-5.1) 4.1 mmol/L (3.5-5.1) Chloride Level 99 mmol/L (98-107) 102 mmol/L (98-107) Carbon Dioxide Level 30 mmol/L (21-32) 31 mmol/L (21-32) Anion Gap 7 (6-14) 8 (6-14) Blood Urea Nitrogen 18 mg/dL (8-26) 20 mg/dL (8-26) Creatinine 0.9 mg/dL (0.7-1.3) 0.9 mg/dL (0.7-1.3) Estimated GFR (Cockcroft-Gault) 81.6 81.6 BUN/Creatinine Ratio 20 (6-20) 22 (6-20) Glucose Level 96 mg/dL (70-99) 90 mg/dL (70-99) Calcium Level 9.1 mg/dL (8.5-10.1) 8.6 mg/dL (8.5-10.1) Total Bilirubin 0.6 mg/dL (0.2-1.0) 0.6 mg/dL (0.2-1.0) Aspartate Amino Transf (AST/SGOT) 23 U/L (15-37) 20 U/L (15-37) Alanine Aminotransferase (ALT/SGPT) 18 U/L (16-63) 20 U/L (16-63) Alkaline Phosphatase 157 U/L (46-116) 134 U/L (46-116) Troponin I High Sensitivity 16 ng/L (4-75) ED-Vur-G-Type Natriuretic Peptide 3004 pg/mL (0-449) Total Protein 6.5 g/dL (6.4-8.2) 6.0 g/dL (6.4-8.2) Albumin 2.8 g/dL (3.4-5.0) 2.6 g/dL (3.4-5.0) Albumin/Globulin Ratio 0.8 (1.0-1.7) 0.8 (1.0-1.7) ECHOCARDIOGRAM Echocardiogram 02/13/19 - 2-D + DOPPLER ECHOCARDIOGRAM Interpretation Summary Monophasic mitral diastolic flow consistent with atrial fibrillation, present on the prior study. Left ventricular contractility is difficult to evaluate due to irregular rhythm. Moderately decreased LV contractility: Estimated LVEF 40%. LV regional wall motion abnormalities may be related to left bundle branch block. Mild right ventricular basal dimension dilatation with normal overall right ventricular contractility. Moderate left and right atrial dilatation. Pulmonary artery, pulmonic valve, and aortic arch are not well visualized. Trace pulmonic regurgitation. Elevated central venous pressure (6-10 mm Hg). Central venous pressure was normal on the prior study. 23 mm [place] aortic root allograft with an allograft aortic valve. Mild to moderate aortic regurgitation. Transvalvular gradients are similar to the prior study. Mild mitral annular calcification. Trace mitral regurgitation. Tricuspid regurgitation peak velocity 1.55-2.05 m/s. On the prior study, tricuspid regurgitation peak velocity was 2.31-2.42 m/s. Normal tricuspid valve motion. Mild tricuspid regurgitation. Estimated PA pressure 25 mmHg. On the prior study estimated PA pressure was 31 mmHg. HEART CATH Heart Cath a. 08/06/02 - Chest pain walking dog. Cath: 70% RCA & mid Cx, 95%mid RCA ROBERT 0.5 cm2 so needed concurrent aortic valve replacement b. 08/09/02 - CABGx2 (Noah): SVG-RCA, SVG-Cx c. 07/26: Cath: Patent grafts with occluded RCA, 5 mm Aortic valve gradient after Ex echo suggested lateral ischemia ASSESSMENT/PLAN Assessment/Plan 1. Acute on chronic respiratory failure 2. Acute on chronic systolic CHF 3. Chronic AFIB; on metoprolol for rate control. s/p IV Dig yesterday for RVR. rate now controlled. On Eliquis for stroke prophylaxis 4. CAD s/p CABG in 2002. clinically stable. Follows with Dr. Michael HEATH 5. Ischemic cardiomyopathy; Echo 2018 with LVEF 40% 6. Aortic stenosis s/p bioprosthetic AVR 2002. Echo 2018 with mild to moderate AR Recommendations IV diuresis HF optimization Add low-dose ARIEL. BP has not tolerated Entresto in past per review of records Resume secondary prevention Metoprolol for rate control. Oral Dig added Eliquis for stroke prophylaxis Add statin Needs outpatient echo and ischemic evaluation as none noted recently per review of [facility] records. AME JENNINGS MD 10/22/211946: CARDIAC CONSULT ASSESSMENT/PLAN Assessment/Plan Patient seen and examined. Agree with above ENVIRONMENTAL SERVICES TECHNICIAN note. ENRICO STOUT APRN Oct 22, 2021 08:09 AME JENNINGS MD Oct 22, 2021 19:47
[2021-10-22] MEDS: DIGOXIN 125 MCG TABLET PO SCH (09:23)
[2021-10-22] MEDS: TOPIRAMATE 25 MG TABLET. PO SCH ×2 (09:23→20:46)
[2021-10-22] MEDS: AZITHROMYCIN 250 MG TABLET. PO SCH (09:24)
[2021-10-22] MEDS: lamoTRIgine 100 MG TABLET. PO SCH ×2 (09:24→20:45)
[2021-10-22] MEDS: LACTOBACILLUS RHAMNOSUS GG 1 CAPSULE. PO SCH ×2 (09:24→20:46)
[2021-10-22] MEDS: APIXABAN 5 MG TABLET. PO SCH ×2 (09:26→20:46)
[2021-10-22] MEDS: FUROSEMIDE 40 MG/4 ML VIAL IVP SCH ×2 (09:26→14:58)
[2021-10-22] MEDS: CHOLECALCIFEROL (VITAMIN D3) 1,000 UNIT TABLET PO SCH (09:30)
[2021-10-22] MEDS: NALTREXONE HCL 50 MG TABLET PO SCH (09:30)
[2021-10-22] MEDS: METOPROLOL SUCC 24HR ER 50 MG TAB.ER.24H. PO SCH (09:35)
[2021-10-22] MEDS: POTASSIUM CHLORIDE 20 MEQ TABLET.ER. PO SCH (09:38)
[2021-10-22] MEDS: BUDESONIDE 0.5 MG/2 ML NEBU NEB SCH ×2 (09:39→21:07)
[2021-10-22 11:02] VITALS: BP 144/53
[2021-10-22 15:36] VITALS: BP 137/56
[2021-10-22 19:51] VITALS: BP 118/51
[2021-10-22] MEDS: ATORVASTATIN CALCIUM 20 MG TABLET PO SCH (20:46)
[2021-10-22] MEDS: traZODone 50 MG TABLET. PO PRN (20:46)
[2021-10-22] MEDS: SERTRALINE 100 MG TABLET. PO SCH (20:46)
[2021-10-22 23:08] VITALS: BP 112/50
[2021-10-23] MEDS: ALBUTEROL SULFATE 2.5 MG/3 ML NEBU. NEB SCH ×4 (05:15→20:29)
[2021-10-23 06:15] VITALS: BP 112/50
[2021-10-23 06:16] VITALS: BP 137/74
[2021-10-23 07:39] LABS: CALCIUM 8.8 mg/dL (8.5-10.1); CREATININE 0.9 mg/dL (0.7-1.3); GFR 81.6; POTASSIUM 3.7 mmol/L (3.5-5.1)
[2021-10-23] MEDS: FUROSEMIDE 40 MG/4 ML VIAL IVP SCH ×2 (08:51→15:02)
[2021-10-23] MEDS: POTASSIUM CHLORIDE 20 MEQ TABLET.ER. PO SCH (08:51)
[2021-10-23] MEDS: CHOLECALCIFEROL (VITAMIN D3) 1,000 UNIT TABLET PO SCH (08:51)
[2021-10-23] MEDS: AZITHROMYCIN 250 MG TABLET. PO SCH (08:53)
[2021-10-23] MEDS: LISINOPRIL 5 MG TABLET. PO SCH (08:53)
[2021-10-23] MEDS: LACTOBACILLUS RHAMNOSUS GG 1 CAPSULE. PO SCH ×2 (08:53→20:39)
[2021-10-23] MEDS: METOPROLOL SUCC 24HR ER 50 MG TAB.ER.24H. PO SCH (08:53)
[2021-10-23] MEDS: DIGOXIN 125 MCG TABLET PO SCH (08:54)
[2021-10-23] MEDS: TOPIRAMATE 25 MG TABLET. PO SCH ×2 (08:55→20:40)
[2021-10-23] MEDS: APIXABAN 5 MG TABLET. PO SCH ×2 (08:55→20:40)
[2021-10-23] MEDS: lamoTRIgine 100 MG TABLET. PO SCH ×2 (08:55→20:40)
[2021-10-23] MEDS: NALTREXONE HCL 50 MG TABLET PO SCH (08:56)
[2021-10-23] MEDS: BUDESONIDE 0.5 MG/2 ML NEBU NEB SCH ×2 (09:25→20:29)
--- NOTE | 2021-10-23 09:28 | PN ---
DATE: 10/22/2021 SUBJECTIVE: The patient is sitting on his chair, participating with physical and occupational therapy. He denied any chest pain that feeling slightly better, although he continues obviously to have shortness of breath, cough with mostly scanty whitish sputum. PHYSICAL EXAMINATION: GENERAL: When I examined him, he looked somewhat pale, no jaundice, cyanosis or thyromegaly. No jugular venous distention. No lower limb edema. VITAL SIGNS: His heart rate was 92, blood pressure was 144/53, temperature 97.1, respiratory rate 20, and oxygen saturation was 94% on 2 liters of oxygen. HEAD, EYES, EARS, NOSE, AND THROAT: Normocephalic, atraumatic. NECK: Supple. HEART: Showed normal first and second heart sounds. No gallop, rub or murmur. CHEST: Shows central trachea, equal bilateral chest expansion, air entry, vesicular breath sounds, bilateral basal crepitation and very few scattered rhonchi. ABDOMEN: Distended, soft, nontender. NEUROLOGIC: He was grossly intact. All his cranial nerves intact. He moves extremities without difficulty, ambulates with a cane. His intake over the last 24 hours was 1200, no output was recorded. LABORATORY DATA: This morning showed a white cell count of 8.6, hemoglobin 11.7, hematocrit 35, MCV 100 and platelet count of 251,000 with normal manual differential. His chemistry showed a serum sodium 141, potassium 4.1, chloride 102, bicarbonate 31, anion gap of 8, BUN 20, creatinine 0.9. Estimated GFR was 81 mL per minute. His glucose was 90, calcium was 8.6. Total bilirubin, AST, ALT were normal. Alkaline phosphatase slightly elevated. His total protein 6, albumin was 2.6. ASSESSMENT: 1. Acute on chronic hypoxic respiratory failure. 2. Acute exacerbation of chronic obstructive pulmonary disease. 3. Community-acquired pneumonia. 4. Acute on chronic systolic congestive heart failure. 5. Hypertension. 6. Atrial fibrillation, rate controlled, well anticoagulated. PLAN: My plan is to continue with IV Lasix twice a day. Continue with digoxin daily whether metoprolol to control the heart rate. Continue with apixaban for stroke prevention and DVT prophylaxis. The patient agreed to be discharged to [facility] to continue with the process of rehabilitation. JON DR: Annie TID: [id number]
[2021-10-23 11:02] VITALS: BP 110/48
[2021-10-23 15:25] VITALS: BP 129/58
[2021-10-23 19:00] VITALS: BP 142/74
[2021-10-23] MEDS: SERTRALINE 100 MG TABLET. PO SCH (20:40)
[2021-10-23] MEDS: ATORVASTATIN CALCIUM 20 MG TABLET PO SCH (20:40)
[2021-10-23] MEDS: traZODone 50 MG TABLET. PO PRN (20:40)
[2021-10-23 23:00] VITALS: BP 117/55
--- NOTE | 2021-10-24 01:22 | PN ---
DATE: 10/23/2021 SUBJECTIVE: The patient is resting, slightly propped up in bed, eating his lunch comfortably. On questioning him, he denied any complaint. He did participate with physical therapy. He continued to have cough and some mild chest tightness, but denied any chills, rigors or fever. PHYSICAL EXAMINATION: GENERAL: When I examined him, he looked well, somewhat pale, not jaundiced, cyanosed. No lymphadenopathy, no thyromegaly, no jugular venous distention. No lower limb edema. VITAL SIGNS: His heart rate was 70, blood pressure is 137/74, temperature was 98.6, respiratory rate was 18 and oxygen saturation was 94% on 2 liters of oxygen. HEAD, EYES, EARS, NOSE, AND THROAT: Normocephalic, atraumatic. NECK: Supple. HEART: Showed normal first and second heart sounds. No gallop, rub or murmur. CHEST: Showed central trachea, equal bilateral expansion, air entry, vesicular breath sounds with bilateral basal crepitation and very few scattered rhonchi. ABDOMEN: Distended, soft, nontender. NEUROLOGIC: He was grossly intact. All his cranial nerves intact. He moves extremities without difficulty, ambulates with a cane. His intake over the last 24 hours was 1490, no output was recorded. LABORATORY DATA: This morning showed a serum sodium 139, potassium 3.7, chloride 102, bicarbonate 33, anion gap of 4, BUN 19, creatinine 0.9. Estimated GFR was 81 mL per minute. His glucose was 93 and calcium was 8.8. As of yesterday, his white cell count was 8.6, hemoglobin 11.7, hematocrit 35, MCV 100, platelet count of 251,000 with normal manual differential. ASSESSMENT: 1. Acute on chronic hypoxic respiratory failure. 2. Acute exacerbation of chronic obstructive pulmonary disease. 3. Community-acquired pneumonia. 4. Acute on chronic systolic congestive heart failure. 5. Hypertension. 6. Atrial fibrillation, rate controlled, well anticoagulated. PLAN: To continue with IV Lasix. Continue with digoxin and metoprolol to control the heart rate. Continue with apixaban for stroke prevention and DVT prophylaxis. The patient will be discharged to [facility] for rehabilitation. ARLINE/WILLIAM DR: Annie TID: [id number]
[2021-10-24 05:00] VITALS: BP 115/54
[2021-10-24] MEDS: ALBUTEROL SULFATE 2.5 MG/3 ML NEBU. NEB SCH ×4 (05:17→21:01)
[2021-10-24 07:42] LABS: HEMATOCRIT 39.2 % (39.0-53.0); RED BLOOD COUNT 3.95 x10^6/uL (4.30-5.70); RED CELL DISTRIBUTION WIDTH 13.4 % (11.5-14.5); WHITE BLOOD COUNT 9.1 x10^3/uL (4.0-11.0)
[2021-10-24 07:59] LABS: CALCIUM 8.8 mg/dL (8.5-10.1); CREATININE 0.9 mg/dL (0.7-1.3); GFR 81.6; POTASSIUM 4.1 mmol/L (3.5-5.1)
[2021-10-24] MEDS: NALTREXONE HCL 50 MG TABLET PO SCH (09:00)
[2021-10-24] MEDS: BUDESONIDE 0.5 MG/2 ML NEBU NEB SCH ×2 (09:32→21:01)
[2021-10-24] MEDS: AZITHROMYCIN 250 MG TABLET. PO SCH (10:48)
[2021-10-24] MEDS: DIGOXIN 125 MCG TABLET PO SCH (10:48)
[2021-10-24] MEDS: CHOLECALCIFEROL (VITAMIN D3) 1,000 UNIT TABLET PO SCH (10:49)
[2021-10-24] MEDS: POTASSIUM CHLORIDE 20 MEQ TABLET.ER. PO SCH (10:49)
[2021-10-24] MEDS: METOPROLOL SUCC 24HR ER 50 MG TAB.ER.24H. PO SCH (10:49)
[2021-10-24] MEDS: APIXABAN 5 MG TABLET. PO SCH ×2 (10:49→20:48)
[2021-10-24] MEDS: TOPIRAMATE 25 MG TABLET. PO SCH ×2 (10:49→20:48)
[2021-10-24] MEDS: LACTOBACILLUS RHAMNOSUS GG 1 CAPSULE. PO SCH ×2 (10:50→20:48)
[2021-10-24] MEDS: LISINOPRIL 5 MG TABLET. PO SCH (10:50)
[2021-10-24] MEDS: lamoTRIgine 100 MG TABLET. PO SCH ×2 (10:50→20:48)
[2021-10-24] MEDS: FUROSEMIDE 40 MG/4 ML VIAL IVP SCH ×2 (10:51→14:58)
[2021-10-24 11:16] VITALS: BP 120/52
--- NOTE | 2021-10-24 14:04 | PDOC ---
PROGRESS NOTES Date of Service DOS: DATE: 10/24/21 TIME: 14:04 Diagnosis Problem Problems Medical Problems: (1) Community acquired pneumonia Status: Acute (2) Hypoxia Status: Acute Assessment 1. Acute on chronic respiratory failure secondary to combination of pneumonia and acute on chronic systolic heart failure 2. Acute on chronic systolic CHF 3. Chronic AFIB; rate controlled 4. CAD s/p CABG in 2002. clinically stable. Follows with Dr. Michael HEATH 5. Ischemic cardiomyopathy; Echo 2018 with LVEF 40% 6. Aortic stenosis s/p bioprosthetic AVR 2002. Echo 2018 with mild to moderate AR Recommendations Change Lasix to p.o. Continue current medical regimen Secondary prevention measures Eliquis for stroke prophylaxis Plan outpatient echo and ischemic evaluation Subjective Feels better with improvement in dyspnea Objective Vital Signs Date Time Temp Pulse Resp B/P (MAP) Pulse Ox O2 Delivery O2 Flow Rate FiO2 10/24/21 11:16 98.0 69 20 120/52 (74) 90 Nasal Cannula 2.0 Intake and Output 10/24/21 07:00 Intake Total 1810 ml Output Total 2175 ml Balance -365 ml Intake Oral 1760 ml IV Total 50 ml Output Urine Total 2175 ml Abdomen: Soft Heart: Other (Heart rate regular) Extremities: No edema General: Alert, No acute distress HEENT: Atraumatic Lungs: Other (Scattered crepitations bilaterally) Neck: No JVD Neuro: Normal gait, Normal speech Psych/Mental Status: Mood NL Review of Relevant I have reviewed the following items ashley (where applicable) has been applied. Labs Laboratory Tests Test 10/24/21 06:57 10/24/21 06:59 White Blood Count 9.1 x10^3/uL (4.0-11.0) Red Blood Count 3.95 x10^6/uL (4.30-5.70) L Hemoglobin 13.0 g/dL (13.0-17.5) Hematocrit 39.2 % (39.0-53.0) Mean Corpuscular Volume 99 fL (79-100) Mean Corpuscular Hemoglobin 33 pg (25-35) Mean Corpuscular Hemoglobin Concent 33 g/dL (31-37) Red Cell Distribution Width 13.4 % (11.5-14.5) Platelet Count 286 x10^3/uL (140-400) Sodium Level 139 mmol/L (136-145) Potassium Level 4.1 mmol/L (3.5-5.1) Chloride Level 102 mmol/L (98-107) Carbon Dioxide Level 32 mmol/L (21-32) Anion Gap 5 (6-14) L Blood Urea Nitrogen 20 mg/dL (8-26) Creatinine 0.9 mg/dL (0.7-1.3) Estimated GFR (Cockcroft-Gault) 81.6 Glucose Level 92 mg/dL (70-99) Calcium Level 8.8 mg/dL (8.5-10.1) Medications Current Medications Medications (Trade) Dose Ordered Sig/Sommer Route PRN Reason Start Time Stop Time Status Last Admin Dose Admin Guaifenesin (Mucinex Er) 600 mg BID PO 10/24/21 11:30 10/24/21 13:51 Vitals/I & O Vital Signs Date Time Temp Pulse Resp B/P (MAP) Pulse Ox O2 Delivery O2 Flow Rate FiO2 10/24/21 11:16 98.0 69 20 120/52 (74) 90 Nasal Cannula 2.0 I & O 10/23/21 10/23/21 10/24/21 15:00 23:00 07:00 Intake Total 1080 ml 290 ml 440 ml Output Total 1025 ml 800 ml 350 ml Balance 55 ml -510 ml 90 ml Justification of Admission: Justification of Admission: Justification of Admission Dx: Yes EUNICE KEARNEY MD Oct 24, 2021 14:04
[2021-10-24 15:40] VITALS: BP 128/68
[2021-10-24 19:30] VITALS: BP 117/65
[2021-10-24] MEDS: SERTRALINE 100 MG TABLET. PO SCH (20:48)
[2021-10-24] MEDS: traZODone 50 MG TABLET. PO PRN (20:48)
[2021-10-24] MEDS: ATORVASTATIN CALCIUM 20 MG TABLET PO SCH (20:49)
--- NOTE | 2021-10-24 22:22 | PN ---
DATE: 10/24/2021 SUBJECTIVE: The patient is resting, slightly propped up in bed, in no apparent distress. On questioning him, he denied any complaint. Nursing staff stated that he seemed to have more productive cough today. PHYSICAL EXAMINATION: GENERAL: When I examined him, he looked well and was clearly in no apparent respiratory distress. No pallor, jaundice, cyanosis or thyromegaly. No jugular venous distention. No limb edema. VITAL SIGNS: His heart rate was 76, blood pressure is 115/54, temperature was 97.8, respiratory rate was 18 and oxygen saturation was 95% on 2 liters of oxygen. HEAD, EYES, EARS, NOSE AND THROAT: Normocephalic, atraumatic. NECK: Supple. HEART: Normal first and second heart sounds. No gallop, rub or murmur. CHEST: Shows central trachea, equal bilateral chest expansion, air entry, vesicular breath sounds with few bilateral basal crepitation. Very few scattered rhonchi. ABDOMEN: Distended, soft, nontender. NEUROLOGIC: He was grossly intact. His cranial nerves are intact. He moves extremities without difficulty. He ambulates with a cane. His intake over the last 24 hours was 2039, output was 3625. LABORATORY DATA: As of this morning, his white cell count was 9.1, hemoglobin was 13, hematocrit 39, MCV 99 and platelet count 286,000. His chemistry showed a serum sodium 139, potassium 4.1, chloride 102, bicarbonate 32, anion gap of 5, BUN 20, creatinine 0.9. Estimated GFR was 81 mL per minute. Her glucose was 92 and calcium was 8.8. ASSESSMENT: 1. Acute on chronic hypoxic respiratory failure. 2. Chronic obstructive pulmonary disease exacerbation. 3. Community-acquired pneumonia. 4. Acute on chronic systolic congestive heart failure. 5. Hypertension. 6. Atrial fibrillation, rate controlled, well anticoagulated. PLAN: To continue with IV Lasix. Continue with digoxin and metoprolol to control the heart rate. Continue with apixaban for stroke prevention and DVT prophylaxis. Continue with physical and occupational therapy. We will hopefully discharge him tomorrow to [facility] to continue rehabilitation. CARMEN DR: Annie TID: [id number]
[2021-10-25] MEDS: ALBUTEROL SULFATE 2.5 MG/3 ML NEBU. NEB SCH (04:48)
[2021-10-25 04:58] VITALS: BP 132/62
[2021-10-25 07:34] LABS: CALCIUM 9.1 mg/dL (8.5-10.1); CREATININE 1.1 mg/dL (0.7-1.3); GFR 64.7; POTASSIUM 4.6 mmol/L (3.5-5.1)
--- NOTE | 2021-10-25 07:57 | PDOC ---
ENRICO STOUT RESOURCE MANAGER 10/25/21 0757: CARDIO Progress Notes Date & Time Date of Service DATE: 10/25/21 TIME: 07:55 Time of Evaluation 07:55 Subjective Notes Breathing improved. No chest pain, palpitations. Vitals Vitals Vital Signs Date Time Temp Pulse Resp B/P (MAP) Pulse Ox O2 Delivery O2 Flow Rate FiO2 10/25/21 04:58 97.1 70 20 132/62 (85) 94 Nasal Cannula 2.0 Weight Weight [ ] Input and Output I.O. Intake and Output 10/25/21 07:00 Intake Total 1330 ml Output Total 4100 ml Balance -2770 ml Intake Oral 1280 ml IV Total 50 ml Output Urine Total 4100 ml Laboratory Labs Laboratory Tests Test 10/24/21 06:57 10/24/21 06:59 10/25/21 06:11 White Blood Count 9.1 x10^3/uL (4.0-11.0) Red Blood Count 3.95 x10^6/uL (4.30-5.70) Hemoglobin 13.0 g/dL (13.0-17.5) Hematocrit 39.2 % (39.0-53.0) Mean Corpuscular Volume 99 fL (79-100) Mean Corpuscular Hemoglobin 33 pg (25-35) Mean Corpuscular Hemoglobin Concent 33 g/dL (31-37) Red Cell Distribution Width 13.4 % (11.5-14.5) Platelet Count 286 x10^3/uL (140-400) Sodium Level 139 mmol/L (136-145) 144 mmol/L (136-145) Potassium Level 4.1 mmol/L (3.5-5.1) 4.6 mmol/L (3.5-5.1) Chloride Level 102 mmol/L (98-107) 104 mmol/L (98-107) Carbon Dioxide Level 32 mmol/L (21-32) 36 mmol/L (21-32) Anion Gap 5 (6-14) 4 (6-14) Blood Urea Nitrogen 20 mg/dL (8-26) 22 mg/dL (8-26) Creatinine 0.9 mg/dL (0.7-1.3) 1.1 mg/dL (0.7-1.3) Estimated GFR (Cockcroft-Gault) 81.6 64.7 Glucose Level 92 mg/dL (70-99) 100 mg/dL (70-99) Calcium Level 8.8 mg/dL (8.5-10.1) 9.1 mg/dL (8.5-10.1) Physical Exams HEENT: Neck Supple W Full Motion Chest: Symmetric Lungs: Other (fine crackles ) Heart: RRR Abdomen: Soft N/T Extremities: No Edema Neurology: alert, oriented, follow commands Assessment Assessment 1. Acute on chronic respiratory failure secondary to combination of a/c CHF, AECOPD, and probable pneumonia 2. Acute on chronic systolic CHF; improved s/p IV diuresis 3. Chronic AFIB; rate controlled 4. CAD s/p CABG in 2002. clinically stable. Follows with Dr. Michael HEATH 5. Ischemic cardiomyopathy; Echo 2018 with LVEF 40% 6. Aortic stenosis s/p bioprosthetic AVR 2002. Echo 2018 with mild to moderate AR Recommendations Convert to oral Lasix upon discharge Continue current medical regimen Secondary prevention measures Eliquis for stroke prophylaxis Plan outpatient echo and ischemic evaluation with primary auto accessories installer EUNICE KEARNEY MD 10/25/212050: CARDIO Progress Notes Assessment Assessment Patient seen and examined. Agree with TWO WAY RADIO TECHNICIAN's assessment and plan as stated above ENRICO STOUT APRN Oct 25, 2021 07:57 EUNICE KEARNEY MD Oct 25, 2021 20:51
[2021-10-25] MEDS: FUROSEMIDE 40 MG/4 ML VIAL IVP SCH ×2 (08:38→14:01)
[2021-10-25] MEDS: DIGOXIN 125 MCG TABLET PO SCH (08:39)
[2021-10-25] MEDS: CHOLECALCIFEROL (VITAMIN D3) 1,000 UNIT TABLET PO SCH (08:39)
[2021-10-25] MEDS: TOPIRAMATE 25 MG TABLET. PO SCH (08:39)
[2021-10-25] MEDS: LACTOBACILLUS RHAMNOSUS GG 1 CAPSULE. PO SCH (08:40)
[2021-10-25] MEDS: POTASSIUM CHLORIDE 20 MEQ TABLET.ER. PO SCH (08:40)
[2021-10-25] MEDS: lamoTRIgine 100 MG TABLET. PO SCH (08:40)
[2021-10-25] MEDS: METOPROLOL SUCC 24HR ER 50 MG TAB.ER.24H. PO SCH (08:40)
[2021-10-25] MEDS: APIXABAN 5 MG TABLET. PO SCH (08:40)
[2021-10-25] MEDS: AZITHROMYCIN 250 MG TABLET. PO SCH (08:40)
[2021-10-25] MEDS: LISINOPRIL 5 MG TABLET. PO SCH (08:40)
[2021-10-25] MEDS: NALTREXONE HCL 50 MG TABLET PO SCH (08:41)
[2021-10-25 10:04] LABS: BASO # 0.1 x10^3/uL (0.0-0.2); BASO % 1 % (0-3); EOS # 0.3 x10^3/uL (0.0-0.7); EOS % 3 % (0-3); HEMATOCRIT 42.8 % (39.0-53.0); HEMOGLOBIN 13.8 g/dL (13.0-17.5); LYMPH # 1.8 x10^3/uL (1.0-4.8); LYMPH % 17 % (24-48); MEAN CORPUSCULAR HEMOGLOBIN 32 pg (25-35); MEAN CORPUSCULAR HGB CONC 32 g/dL (31-37); MEAN CORPUSCULAR VOLUME 100 fL (79-100); MONO # 1.2 x10^3/uL (0.0-1.1); MONO % 11 % (0-9); NEUT # 7.1 x10^3uL (1.8-7.7); NEUT % 68 % (31-73); PLATELET COUNT 315 x10^3/uL (140-400); RED BLOOD COUNT 4.26 x10^6/uL (4.30-5.70); RED CELL DISTRIBUTION WIDTH 13.8 % (11.5-14.5); WHITE BLOOD COUNT 10.6 x10^3/uL (4.0-11.0)
[2021-10-25 10:52] VITALS: BP 108/65
[2021-10-25] MEDS ORDERED: FURO40TA4 PO (14:24)
[2021-10-25] MEDS ORDERED: POTA20TA4 PO (14:24)
--- NOTE | 2021-10-25 14:26 | DISCH ---
DISCHARGE ORDERS DISCHARGE DATE: Oct 25, 2021 FINAL DIAGNOSIS acute on chronic hypoxic respiratory failure acute on chronic systolic heart failure CONDITION AT DISCHARGE: Stable Code Status: Full SNF STAY <30 DAYS: Yes POST DISCHARGE ORDERS: ACTIVITY ORDERS: Activity as tolerated DIET AFTER DISCHARGE: Cardiac DISCHARGE MEDICATIONS: Home Meds Active Scripts Potassium Chloride (POTASSIUM CHLORIDE ) 20 Meq Tablet.er, 20 MEQ PO BID for SUPPLEMENT for 30 Days, #60 TAB 5 Refills Prov:LUDIVINA ZURITA MD 10/25/21 Furosemide (FUROSEMIDE) 40 Mg Tablet, 40 MG PO BID for chf for 30 Days, #60 TAB Prov:LUDIVINA ZURITA MD 10/25/21 Reported Medications Metoprolol Succinate (TOPROL XL) 200 Mg Tab.er.24h, 0.5 TAB PO DAILY for FOR HYPERTENSION, #30 TAB 0 Refills 10/20/21 Trazodone Hcl (TRAZODONE HCL) 50 Mg Tablet, 50 MG PO PRN QHS PRN for SLEEP, TAB 10/20/21 Topiramate (TOPIRAMATE) 50 Mg Tablet, 50 MG PO BID for NEURO, TAB 10/20/21 Sertraline Hcl (ZOLOFT) 100 Mg Tablet, 100 MG PO HS for ANTI-DEPRESSANT, TAB 0 Refills 10/20/21 Naltrexone Hcl (NALTREXONE HCL) 50 Mg Tablet, 50 MG PO DAILY for ALCOHOL CRAVINGS, TAB 10/20/21 Lamotrigine (LAMOTRIGINE) 200 Mg Tab.er.24, 200 MG PO BID for MOOD, TAB.SR 10/20/21 Fluticasone/Salmeterol (ADVAIR 250-50 DISKUS) 1 Each Disk.w.dev, 1 PUFF IH BID for COPD, #1 INHALER 5 Refills 10/20/21 Cholecalciferol (Vitamin D3) (Vitamin D3 ) 25 Mcg Tablet, 4000 UNITS PO DAILY for SUPPLEMENT, TAB 1,000 UNITS = 25 MCG 10/20/21 Albuterol Sulfate (VENTOLIN HFA INHALER) 18 Gm Hfa.aer.ad, 2 PUFF IH PRN QID PRN for FOR ASTHMA, EACH 0 Refills 10/20/21 Apixaban (ELIQUIS) 5 Mg Tablet, 5 MG PO BID for BLOOD THINNER, TAB 10/20/21 Discontinued Reported Medications Furosemide (FUROSEMIDE) 40 Mg Tablet, 40 MG PO DAILY for FLUID RETENTION, TAB 10/20/21 LUDIVINA ZURITA MD Oct 25, 2021 14:26
[2021-10-25 14:51] VITALS: BP 135/69
== END 2021-10-25 17:40 | DRG 177 ==
LOC: ER 19:14 → 1 SOUTH 20:16
PROVIDERS: ADMIT Internal Medicine; ATTEND Internal Medicine
DX: J15.6 Pneumonia due to other Gram-negative bacteria (principal); I50.23 Acute on chronic systolic (congestive) heart failure; J96.21 Acute and chronic respiratory failure with hypoxia; R65.11 Systemic inflammatory response syndrome (SIRS) of non-infectious origin with acute organ dysfunction; I48.20 Chronic atrial fibrillation, unspecified; J44.0 Chronic obstructive pulmonary disease with (acute) lower respiratory infection; J44.1 Chronic obstructive pulmonary disease with (acute) exacerbation; J15.9 Unspecified bacterial pneumonia; F32.A Depression, unspecified; G43.909 Migraine, unspecified, not intractable, without status migrainosus; I11.0 Hypertensive heart disease with heart failure; I25.10 Atherosclerotic heart disease of native coronary artery without angina pectoris; I25.5 Ischemic cardiomyopathy; F41.9 Anxiety disorder, unspecified; M19.90 Unspecified osteoarthritis, unspecified site; Z20.822 Contact with and (suspected) exposure to COVID-19; I35.0 Nonrheumatic aortic (valve) stenosis; Z80.1 Family history of malignant neoplasm of trachea, bronchus and lung; Z82.5 Family history of asthma and other chronic lower respiratory diseases; Z87.820 Personal history of traumatic brain injury; Z87.891 Personal history of nicotine dependence; Z95.1 Presence of aortocoronary bypass graft; Z95.3 Presence of xenogenic heart valve; Z95.5 Presence of coronary angioplasty implant and graft; Z88.6 Allergy status to analgesic agent; Z82.49 Family history of ischemic heart disease and other diseases of the circulatory system
CPT/HCPCS: 36415; 70450; 71045; 80048; 80053; 81001; 82550; 82803; 83605; 83735; 83880; 84100; 84484; 85007; 85025; 85027; 85610; 85730; 87040; 87426; 87428; 93005; 94640; 94760; 96365; 96366; 96375; 96376; G0378; G0379; J0456; J0696; J1160; J1940; J2930; J7050; U0003; 97110; 97112; 97116; 97530; 97535; 99285-25; J7613